=== PATIENT | male | born 1970 | race Caucasian/White ===

== ENCOUNTER 2021-10-30 11:41 | Inpatient (IN) ==
[2021-10-30 12:29] LABS: Basophils % 0.4 % (0.0-0.8); Hematocrit 43.2 VOL% (42.0-52.0); Hemoglobin 14.4 GM/DL (14.0-18.0); Immature Granulocytes % 0.8 %; Immature Granulocytes Absolute 0.04 #; Lymphocytes # 1.5 10*3/uL (1.4-4.0); Lymphocytes % 29.7 % (21.2-54.2); Mean Corpuscular HGB Conc 33.3 GM/DL (32-36); Mean Corpuscular Volume 90.4 FL (87-102); Mean Platelet Volume 8.6 FL (9.6-12.0); Monocytes # 0.4 10*3/uL (0.11-0.8); Monocytes % 7.7 % (1.7-12.7); Neutrophils % 61.4 % (38.7-73.9); Platelet Count 190 T/CUMM (130-400); Red Blood Count 4.78 MC/CUMM (3.8-5.5); Red Cell Distribution Width 13.2 % (9.3-17.3); White Blood Count 4.9 T/CUMM (4-12)
[2021-10-30 12:47] LABS: Calcium 8.2 MG/DL (8.5-10.1); Potassium 3.4 MMOL/L (3.5-5.1)
[2021-10-30] MEDS ORDERED: PIPERACILLIN/TAZOBACTAM 3,375 MG in SODIUM CHLORIDE 0.9% 100 ML IV STA (13:21)
[2021-10-30] MEDS ORDERED: VANCOMYCIN INJ 1,000 MG in SODIUM CHLORIDE 0.9% 250 ML IV STA ×2 (13:22→13:26)
[2021-10-30 13:40] LABS: Sedimentation Rate-Westergren 34 MM/HR (0-20)
[2021-10-30] MEDS ORDERED: ONDANSETRON 4 MG/2 ML VIAL IV PRN (13:55)
[2021-10-30] MEDS ORDERED: GLUCAGON 1 MG VIAL IM PRN (13:55)
[2021-10-30] MEDS ORDERED: MORPHINE 2 MG/1 ML SYRINGE IV PRN ×2 (13:55→17:10)
[2021-10-30] MEDS ORDERED: VANCOMYCIN INJ 1,250 MG in SODIUM CHLORIDE 0.9% 250 ML IV SCH (14:00)
[2021-10-30] MEDS ORDERED: DEXTROSE 10% 250 ML BAG IV PRN (14:04)
[2021-10-30] MEDS ORDERED: POTASSIUM CHLORIDE 20 MEQ TABLET PO ONE (14:10)
[2021-10-30 14:31] LABS: Barbiturates Screen,Urine Negative (Negative); Benzodiazepines Screen,Urine Negative (Negative); Cannabinoid Screen,Urine Negative (Negative); Opiate Screen,Urine Negative (Negative); Phencyclidine Screen,Urine Negative (Negative)
[2021-10-30] MEDS: KETOROLAC 30 MG/1 ML VIAL IV SCH ×2 (14:59→22:28)
[2021-10-30] MEDS: PANTOPRAZOLE 40 MG TABLET PO SCH (15:10)
[2021-10-30] MEDS: SODIUM CHLORIDE 0.9% 1,000 ML IV SCH (17:35)
[2021-10-30] MEDS: PIPERACILLIN/TAZOBACTAM 3,375 MG in SODIUM CHLORIDE 0.9% 100 ML IV SCH (22:27)
[2021-10-30] MEDS: HEPARIN 5,000 UNIT/1 ML VIAL SUBCUT SCH (23:10)
[2021-10-31] MEDS: KETOROLAC 30 MG/1 ML VIAL IV SCH ×4 (03:15→21:17)
[2021-10-31] MEDS: VANCOMYCIN INJ 1,000 MG in SODIUM CHLORIDE 0.9% 250 ML IV SCH ×2 (03:16→19:34)
[2021-10-31 05:32] LABS: Basophils % 0.2 % (0.0-0.8); Eosinophils % 0.2 % (0.00-10.9); Hematocrit 38.7 VOL% (42.0-52.0); Hemoglobin 12.8 GM/DL (14.0-18.0); Immature Granulocytes % 0.4 %; Immature Granulocytes Absolute 0.02 #; Lymphocytes # 0.8 10*3/uL (1.4-4.0); Lymphocytes % 16.7 % (21.2-54.2); Mean Corpuscular HGB Conc 33.1 GM/DL (32-36); Mean Corpuscular Volume 91.9 FL (87-102); Mean Platelet Volume 8.9 FL (9.6-12.0); Monocytes # 0.2 10*3/uL (0.11-0.8); Monocytes % 3.3 % (1.7-12.7); Neutrophils % 79.2 % (38.7-73.9); Platelet Count 158 T/CUMM (130-400); Red Blood Count 4.21 MC/CUMM (3.8-5.5); Red Cell Distribution Width 13.2 % (9.3-17.3); White Blood Count 4.5 T/CUMM (4-12)
[2021-10-31 06:19] LABS: Alanine Aminotransferase 20 U/L (16-61); Albumin 2.3 G/DL (3.4-5.0); Alkaline Phosphatase 76 U/L (45-117); Aspartate Amino Transferase 18 U/L (0-37); Bilirubin,Total < 0.39 MG/DL (0.20-1.00); Blood Urea Nitrogen 12 MG/DL (7-18); Calcium 7.8 MG/DL (8.5-10.1); Carbon Dioxide 25 MMOL/L (21-32); Chloride 111 MMOL/L (98-107); Glucose 99 MG/DL (74-106); Osmolality,Calculated 280.3 MOS/KG (273-304); Potassium 3.8 MMOL/L (3.5-5.1); Sodium 141 MMOL/L (136-145); Total Protein 5.8 G/DL (6.4-8.2)
[2021-10-31] MEDS ORDERED: propofoL 200 MG/20 ML VIAL IV ONE (07:05)
[2021-10-31] MEDS ORDERED: MIDAZOLAM 2 MG/2 ML VIAL ONE (07:05)
[2021-10-31] MEDS ORDERED: ONDANSETRON 4 MG/2 ML VIAL ONE (07:05)
[2021-10-31] MEDS ORDERED: SEVOFLURANE 1 UNIT/15 MINUTE INH ONE (07:05)
[2021-10-31] MEDS ORDERED: fentaNYL 100 MCG/2 ML VIAL ONE (07:05)
[2021-10-31] MEDS ORDERED: LIDOCAINE 2% 5 ML VIAL ONE (07:05)
[2021-10-31] MEDS ORDERED: MORPHINE 2 MG/1 ML SYRINGE IV PRN (08:10)
[2021-10-31] MEDS ORDERED: ONDANSETRON 4 MG/2 ML VIAL IV PRN (08:22)
[2021-10-31] MEDS: HYDROmorphone 1 MG/1 ML SYRINGE IV PRN ×2 (08:26→08:35)
[2021-10-31] MEDS: PANTOPRAZOLE 40 MG TABLET PO SCH (09:42)
[2021-10-31] MEDS: HEPARIN 5,000 UNIT/1 ML VIAL SUBCUT SCH ×2 (09:45→21:25)
[2021-10-31] MEDS: PIPERACILLIN/TAZOBACTAM 3,375 MG in SODIUM CHLORIDE 0.9% 100 ML IV SCH ×3 (14:05→21:19)
[2021-11-01] MEDS: SODIUM CHLORIDE 0.9% 1,000 ML IV SCH ×3 (01:40→20:37)
[2021-11-01] MEDS: KETOROLAC 30 MG/1 ML VIAL IV SCH ×4 (01:40→20:38)
[2021-11-01] MEDS: PIPERACILLIN/TAZOBACTAM 3,375 MG in SODIUM CHLORIDE 0.9% 100 ML IV SCH ×3 (05:31→22:10)
[2021-11-01 07:06] LABS: Basophils % 0.2 % (0.0-0.8); Hematocrit 39.3 VOL% (42.0-52.0); Hemoglobin 12.9 GM/DL (14.0-18.0); Immature Granulocytes % 0.2 %; Immature Granulocytes Absolute 0.01 #; Lymphocytes # 1.6 10*3/uL (1.4-4.0); Lymphocytes % 34.6 % (21.2-54.2); Mean Corpuscular HGB Conc 32.8 GM/DL (32-36); Mean Corpuscular Volume 91.8 FL (87-102); Mean Platelet Volume 9.1 FL (9.6-12.0); Monocytes # 0.2 10*3/uL (0.11-0.8); Platelet Count 221 T/CUMM (130-400); Red Blood Count 4.28 MC/CUMM (3.8-5.5); Red Cell Distribution Width 13.5 % (9.3-17.3); White Blood Count 4.6 T/CUMM (4-12)
[2021-11-01 07:22] LABS: Alanine Aminotransferase 24 U/L (16-61); Albumin 2.4 G/DL (3.4-5.0); Alkaline Phosphatase 72 U/L (45-117); Aspartate Amino Transferase 22 U/L (0-37); Bilirubin,Total < 0.39 MG/DL (0.20-1.00); Blood Urea Nitrogen 9 MG/DL (7-18); Carbon Dioxide 26 MMOL/L (21-32); Chloride 111 MMOL/L (98-107); Glucose 85 MG/DL (74-106); Osmolality,Calculated 280.1 MOS/KG (273-304); Potassium 4.1 MMOL/L (3.5-5.1); Sodium 142 MMOL/L (136-145); Total Protein 5.8 G/DL (6.4-8.2)
[2021-11-01] MEDS: PANTOPRAZOLE 40 MG TABLET PO SCH (09:00)
[2021-11-01] MEDS: VANCOMYCIN INJ 1,000 MG in SODIUM CHLORIDE 0.9% 250 ML IV SCH ×2 (09:01→20:37)
[2021-11-01] MEDS: HEPARIN 5,000 UNIT/1 ML VIAL SUBCUT SCH ×2 (09:06→20:38)
[2021-11-01] MEDS: MORPHINE 2 MG/1 ML SYRINGE IV PRN (20:37)
[2021-11-02] MEDS: KETOROLAC 30 MG/1 ML VIAL IV SCH ×2 (02:34→11:28)
[2021-11-02] MEDS: SODIUM CHLORIDE 0.9% 1,000 ML IV SCH (04:08)
[2021-11-02 05:23] LABS: Basophils % 0.3 % (0.0-0.8); Hematocrit 39.3 VOL% (42.0-52.0); Hemoglobin 13.1 GM/DL (14.0-18.0); Immature Granulocytes % 0.5 %; Immature Granulocytes Absolute 0.03 #; Lymphocytes # 1.7 10*3/uL (1.4-4.0); Lymphocytes % 28.3 % (21.2-54.2); Mean Corpuscular HGB Conc 33.3 GM/DL (32-36); Mean Corpuscular Volume 91.2 FL (87-102); Mean Platelet Volume 9.5 FL (9.6-12.0); Monocytes # 0.4 10*3/uL (0.11-0.8); Monocytes % 6.2 % (1.7-12.7); Neutrophils % 64.7 % (38.7-73.9); Platelet Count 226 T/CUMM (130-400); Red Blood Count 4.31 MC/CUMM (3.8-5.5); Red Cell Distribution Width 13.2 % (9.3-17.3); White Blood Count 5.9 T/CUMM (4-12)
[2021-11-02 05:48] LABS: Albumin 2.5 G/DL (3.4-5.0); Bilirubin,Total 0.4 MG/DL (0.20-1.00); Calcium 8.4 MG/DL (8.5-10.1); Osmolality,Calculated 276.4 MOS/KG (273-304); Potassium 3.9 MMOL/L (3.5-5.1); Total Protein 6.1 G/DL (6.4-8.2)
[2021-11-02] MEDS: PIPERACILLIN/TAZOBACTAM 3,375 MG in SODIUM CHLORIDE 0.9% 100 ML IV SCH (06:42)
[2021-11-02] MEDS: MORPHINE 2 MG/1 ML SYRINGE IV PRN (09:51)
[2021-11-02] MEDS: VANCOMYCIN INJ 1,000 MG in SODIUM CHLORIDE 0.9% 250 ML IV SCH (11:27)
[2021-11-02] MEDS: HEPARIN 5,000 UNIT/1 ML VIAL SUBCUT SCH (11:28)
[2021-11-02] MEDS: PANTOPRAZOLE 40 MG TABLET PO SCH (11:28)
[2021-11-02 11:51] VITALS: BP 128/82
== END 2021-11-02 15:45 | disposition home or self-care (01) | DRG 513 ==
LOC: N.ED 11:41 → SUATTDRO 13:55 → N.EDINP 13:55 → N.3E 16:10
PROVIDERS: ADMIT Family Medicine; ATTEND Internal Medicine